=== PATIENT | female | born 2005 | race Caucasian/White ===

== ENCOUNTER 2024-02-28 11:09 | Outpatient (CLI) | payer OTHER, SELFPAY ==
[2024-02-28 12:35] LABS: HIV 1/2 Ab P24 Ag Result Negative (Negative)
[2024-02-28 12:39] LABS: Hepatitis B Surface Antigen Negative (Negative)
[2024-02-28 12:56] LABS: Hepatitis C Virus Antibody Negative (Negative)
[2024-02-28 18:14] LABS: Rapid Plasma Reagin Non-Reactive (NonReactive)
== END 2024-02-28 11:10 | disposition home or self-care (01) ==
LOC: ANHLAB 11:13
PROVIDERS: PCP Student in an Organized Health Care Education/Training Program; Visit Provider Nurse Practitioner Family
DX: Z11.3 Encounter for screening for infections with a predominantly sexual mode of transmission (principal)
CPT/HCPCS: 36415; 86592; 86703; 86803; 87340; G0432

== ENCOUNTER 2024-11-01 19:01 | Emergency (ER) | payer OTHER, SELFPAY ==
--- OUTSIDE RECORDS SUMMARY | 2024-11-02 13:07 | XMS_ITS | Referral Summary ---
Author Organization [address] lt Address [address] [place] [address] Care Team Providers Care Commissioned Sales Associate Name Role Phone Louis Mabry MD Primary Care Provider Allergies No known active allergies Medications Blisovi 24 Fe 1 mg-20 mcg (24)/75 mg (4) per tablet Take 1 tablet by mouth daily 03/05/2022 Active Active Problems No known active problems Immunizations Immunization Administration Dates Next Due Meningococcal MCV4P (Menactra) 12/16/2015 Tdap 12/16/2015 Social History Tobacco Use Types Packs/Day Years Used Date Smoking Tobacco: Never Assessed Comments Unknown Sex and Gender Information Value Date Recorded Sex Assigned at Not on file Legal 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 Gender Identity Not on file Sexual Orientation Not on file Last Filed Vital Signs Vital Sign Reading Time Taken Comments Blood Pressure 100/58 05/18/2022 6:13 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 Pulse 100 05/18/2022 6:13 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 Temperature 36.3 C (97.4 F) 05/18/2022 6:13 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
--- OUTSIDE RECORDS SUMMARY | 2024-11-02 13:07 | XMS_ITS | Clinical Summary ---
Author Organization [facility] Address [address] [place] [address] Phone Care Team Providers Care Human Resources Assistant Manager Name Role Phone Radha Villarreal MD Primary Care Provider + Marta Velasco APRN, FUGITIVE INVESTIGATOR Unavailable Allergies No known active allergies Medications Acetaminophen (TYLENOL PO) Take by mouth. Ac tive ketorolac (TORADOL) 10 MG Tablet Take 1 Tablet by mouth every 6 hours as needed for Moderate or more severe pain. 10 Tablet 4 Active Additional Information Patient not taking.Reported on 09/30/2024 Vienva 0.1-20 MG-MCG Tablet Take 1 Tablet by mouth daily. 5 Active omeprazole (PriLOSEC) 20 MG CAPSULE DELAYED RELEASE Take 1 Capsule by mouth daily. 60 Capsule 5 Active Active Problems Problem Noted Date Diagnosed Date Nausea and vomiting 09/12/2024 Assessment & Plan (09/19/2024 3:55 PM CDT): Pt previously referred to Cardiology. Has not heard back yet. Will look into this referral as she is still dizzy and nauseous. Will also restart pt's Omeprazole as she may be having reflux symptoms. She stated this did help her nausea previously so we will restart it until pt gets in with Cardiology. Assessment & Plan (09/12/2024 11:15 AM CDT): With 5 month hx of nausea and vomiting, happens randomly when she eats. Is not associated with bread intake. Denies being , but does not use protection all the time. Discussed log of episodes. Will obtain UA, HCG, lab work including liver function test, CMP, ESR, CBC. Will call with results. Dizziness 09/12/2024 Assessment & Plan (09/19/2024 4:04 PM CDT): Pt previously referred to Cardiology. Has appt on 09/30/2024 at 830am but we are still working on insurance authorization for this. Pt aware. Assessment & Plan (09/12/2024 11:16 AM CDT): Laying HR 72; Blood Pressure: 120/74 Sitting HR 88; Blood pressure: 116/70 Standing HR 107; Blood Pressure 100/58 Discussed 80 ounces of water a day, increase salt intake. Will obtain Ferritin, FE, and CBC. Will refer to Cardiology for further workup and evaluation. Orthostatic hypotension 09/12/2024 Assessment & Plan (09/20/2024 3:46 PM CDT): Numbers today are improved compared to last visit. Pt to follow up with Cardio as recommended. She also was encouraged to drink water with electrolytes or lemon and salt. Told her to ensure positional changes are slow. Assessment & Plan (09/12/2024 11:16 AM CDT): Laying HR 72; Blood Pressure: 120/74 Sitting HR 88; Blood pressure: 116/70 Standing HR 107; Blood Pressure 100/58 Discussed 80 ounces of water a day, increase salt intake. Will obtain Ferritin, FE, and CBC. Will refer to Cardiology for further workup and evaluation. Marijuana smoker 09/12/2024 Assessment & Plan (09/19/2024 4:03 PM CDT): Explained importance of not smoking as many of pt's symptoms could be explained by marijuana use (lightheadedness, dizziness, nausea, etc). Assessment & Plan (09/12/2024 11:17 AM CDT): Confirms daily marijuana smoking and use. Denies correlation with nausea, vomiting and marijuana intake. Recommended if episodes happen to sit in hot shower to see if self resolves. Discussed importance of not smoking. Epigastric pain 07/18/2024 Assessment & Plan (07/18/2024 10:11 AM 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 MACHINE TENDER): Reflux precautions explained to Mom including smaller, more frequent feeds, elevating head of bed, not laying pt flat until 2-3 hours after dinner. Avoiding fatty, fried, spicy foods, caffeinated beverages, soda, tomatoes, onions, peppermint, and any other foods that irritate stomach. Will start pt on Prilosec. She is to let us know if symptoms worsen. Increased BMI 07/18/2024 Assessment & Plan (07/18/2024 10:22 AM 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 MACHINE TENDER): Dietary counseling done today including 5-2-1-0 (5 fruits and vegetables per day, less than 2 hours of screen time per day, at least 1 hour of activity per day, and 0 sweetened beverages). Obesity labs ordered today. Positive depression screening 07/18/2024 Assessment & Plan (07/18/2024 10:25 AM 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 MACHINE TENDER): PHQ9 + for mild depression. No HI/SI. Will monitor at follow up. Encounter for well adult exam without abnormal f indings 05/24/2019 Assessment & Plan (07/18/2024 10:21 AM 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 MACHINE TENDER): Anticipatory guidance done including seat belt safety and water safety. Fire safety and bug avoidance discussed. Sexual preferences, safe sex practices, and discussion on healthy relationships discussed. Maintaining healthy friendships, bullying, and mental health also discussed. Handout given to reiterate important points. Routine lipid screening ordered. Flu vaccine refused by parent even with appropriate counseling on importance of flu shot. Assessment & Plan (05/24/2019 11:41 AM 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 MACHINE TENDER): HPV given today. 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 Pt states there are no vegetables or fruits in house, lots of unhealthy snacks. Encouraged pt to go grocery shopping with parents. Obesity labs ordered today. Assessment & Plan (11/22/2018 10:16 AM CDT): Obesity labs ordered today. Extensive dietary counseling done today including 5-2-1-0 (5 fruits and vegetables per day, less than 2 hours of screen time per day, at least 1 hour of activity per day, and 0 sweetened beverages). Resolved Problems Problem Noted Date Diagnosed Date Resolved Date Acute pharyngitis due to oth er specified organisms 05/24/2019 02/17/2022 Assessment & Plan (05/24/2019 11:40 AM 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 MACHINE TENDER): Rapid strep negative. Culture pending. Office will call with culture results when they come in. Supportive care recommended including Tylenol or Motrin for fever/pain, gargle with warm salt water (1tsp salt/1 cup water), suck on ice chips, popsicles, cough drops, or throat lozenges. Follow up if symptoms worsen, fail to improve, or are concerned. Abscess 03/05/2019 02/17/2022 Assessment & Plan (03/12/2019 4:47 PM CDT): Resolved on exam today. Good hand washing recommended before and after use of restroom. Told pt to complete antibiotic course. Assessment & Plan (03/05/2019 5:35 PM CDT): Antibiotics prescribed. If no response in 24-48 hours with Bactrim, will consider switch to Clindamycin. Also prescribed Mupirocin topically. Pt was draining a lot at home, but in office, unable to express any drainage. Wound culture given to Mom in case pt does start to drain at home with warm baths and warm compresses. Mom and pt both aware that if pt develops fever, worsening pain, enlarging lesion, help should be obtained as soon as possible. Encounter for routine child health examination with abnormal findings 11/22/201807/18 Assessment & Plan (02/17/2022 1:45 PM CDT): Anticipatory guidance done including seat belt safety and water safety. Fire safety and bug avoidance discussed. Sexual preferences, safe sex practices, and discussion on healthy relationships discussed. Maintaining healthy friendships, bullying, and mental health also discussed. Handout given to reiterate important points. Routine lipid screening ordered. Vaccines updated today. PHQ2 negative for depression. Assessment & Plan (11/22/2018 12:53 PM CDT): Anticipatory guidance done including seat belt safety and water safety. Fire safety and bug avoidance discussed. Sexual preferences, safe sex practices, and discussion on healthy relationships discussed. Maintaining healthy friendships, bullying, and mental health also discussed. Handout given to reiterate important points. Vaccines updated today. PHQ2 negative. Hearing and vision screens passed. Hearing Screening 125hz 250hz 500hz 1000hz 2000hz 3000hz 4000hz 6000hz 8000hz Right ear 20 25 20 20 Left ear 20 25 20 20 Vision Screening Right eye Left eye Both eyes Without correction 20/25 20/20 20/20 Encounter for examination fo r admission to educational institution 11/22/2018 07/18/2024 Assessment & Plan (11/22/2018 10:13 AM CDT): School physical form completed today. Upper respiratory infection, viral 05/02/2018 07/18/2024 Assessment & Plan (02/17/2022 2:32 PM CDT): Supportive care recommended with Flonase to alleviate congestion, exposing pt to steam in bathrooms from showers or baths of family members, and use of humidifiers in bedrooms. Supportive care recommended with Acetaminophen and Ibuprofen as needed for pain and fevers. Rapid strep negative. Pt to let us know if she worsens. Assessment & Plan (05/02/2018 2:29 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): Rapid strep negative. Throat culture pending. Tylenol or Motrin for fever/pain. Gargle with warm salt water (1tsp salt/1 cup water). Suck on ice chips, popsicles, cough drops, or throat lozenges. Do not share food, drinks, or utensils. Follow up if symptoms worsen, fail to improve, or are concerned. Encounters Date Type Department Care Team Description 10/01/2024 1:30 PM CDT - 10/01/2024 11:59 PM CDT Hospital Encounter [facility] Cardiology Services [address] [place] [address] Marta Velasco APRN, MARK Discharge Disposition: Discharged to home or Selfcare 09/30/2024 8:30 AM CDT Office Visit [facility] Cardiology [facility] [place] [address] [place] [address] Marta Velasco APRN, CNP Palpitations (Primary Dx); Orthostatic hypotension Discharge Disposition: Discharged to home or Selfcare 09/30/2024 Travel 09/19/2024 3:30 PM CDT Office Visit [facility] - [place] [address] [address] Radha Villarreal MD Dizziness (Primary Dx); Nausea and vomiting, unspecified vomiting type; Marijuana smoker; Orthostatic hypotension Discharge Disposition: Discharged to home or Selfcare 09/19/2024 Travel 09/18/2024 Results Follow-Up [facility] [place] [address] [address] Haydee Kang APRN, MARK CMP (COMPREHENSIVE METABOLIC PANEL), C-REACTIVE PROTEIN (CRP) QUANT, ERYTHROCYTE SEDIMENTATION RATE (ESR), Additional followed-up results: 7 09/12/2024 10:50 AM CDT Lab [facility] Primary Care - [address] [place] [address] [facility] Nausea and vomiting, unspecified vomiting type; Dizziness Discharge Disposition: Discharged to home or Selfcare 09/12/2024 9:45 AM CDT Office Visit [facility] - [facility] - [place] [address] [facility] [place] [address] Haydee Kang APRN, CNP Nausea and vomiting, unspecified vomiting type (Primary Dx); Dizziness; Orthostatic hypotension; Marijuana smoker Discharge Disposition: Discharged to home or Selfcare 09/12/2024 Travel 09/11/2024 [facility] [address] [place] [phone] Radha Villarreal MD Appointment; Vomiting from Last 3 Months Immunizations Immunization Administration Dates Next Due [id number] mae MCV4, Unspecif ied Formulation 12/16/2015 DTAP VACCINE 11/27/2009, 6,2004,09/15,2004 HEP B/HIB Combined Vaccine 2004 Hepatitis A Vaccine, Pediatric/adolescent, 2 Dose Schedule 11/22/2018 Hepatitis A, Pediatric, Unsp ecified Formulation 10/31/2005 Hepatitis B Vaccine, Pediatric/adolescent 2004,2004 Hib Vaccine,unspecified Formulation 06/14/2005,0 2004,2004 Human Papillomavirus (HPV) 9 -valent Vaccine 05/24/2019,11/22/2018 Inactivated Polio Vaccine 11/27/2009,08/2004,2004,07/09 MMR Vaccine 11/27/2009,06/14/2005 Meningococcal MCV4O 02/17/2022 Pneumococcal Vaccine Peds - 7 Valent ,2004,2004,07/09 TDAP Vaccine 12/16/2015 Varicella Vaccine Live 11/27/2009,06/14/2005 Family History Medical History Relation Name Comments Cancer Maternal Grandmother breast Depression Maternal Grandmother Asthma Maternal Uncle Depression Maternal Uncle Depression Mother Asthma Paternal Aunt Depression Paternal Grandmother Depression Paternal Uncle Relation Name Status Comments Maternal Grandmother Maternal Uncle Mother Paternal Aunt Paternal Grandmother Paternal Uncle Social History Tobacco Use Types Packs/Day Years Used Date Smoking Tobacco: Never Smokeless Tobacco: Never Tobacco Cessation:Counseling Given: Not Answered Alcohol Use Standard Drinks/Week Comments Yes 0 (1 standard drink = 0.6 oz pur e alcohol) occassionally PHQ-2 Answer Date Recorded Total Score - Questions 1-9 0 09/0 06/2021 Comments No Sex and Gender Information Value Date Recorded Sex Assigned at Not on file Legal Sex Female 8:00 PM CDT Gender Identity Not on file Sexual Orientation Not on file Last Filed Vital Signs Vital Sign Reading Time Taken Comments Blood Pressure 132/78 09/30/2024 8:28 AM CDT Pulse 65 09/30/2024 8:28 AM CDT Temperature 36.3 C (97.4 F) 09/30/2024 8:28 AM CDT Respiratory Rate 16 09/30/2024 8:28 AM CDT Oxygen Saturation 99% 09/30/2024 8:28 AM CDT Inhaled Oxygen Concentration - - Weight 80.7 kg (178 lb) 09/30/2024 8:28 AM CDT Height 162.6 cm (5' 4 ) 09/30/2024 8:28 AM CDT Body Mass Index 30.55 09/30/2024 8:28 AM CDT Plan of Treatment Upcoming Encounters Date Type Department Care Team (Late st Contact Info) Description 11/08/2024 5:00 PM CDT [facility]ointment [facility] [address] [place] [phone] Marta Velasco APRN, FUGITIVE INVESTIGATOR [address] [place] [phone] Discharge Disposition: Discharged to home or Selfcare 11/20/2024 9:30 AM CDT Office Visit [facility] - [facility]s - [place] [address] [place] [phone] Radha Villarreal MD [address] [place] [address] 11/27/2024 1:00 PM CDT Office Visit [facility] - Cardiology - [place] [address] [place] [address] Livan Durbin MD 2 [facility], [address] [address] Health Maintenance Due Date Last Done Comments Hepatitis C Virus (HCV) Screening 2004 Meningococcal B Immunization (1 of 2 - Standard) 2020 SARS-COV-2 Immunization (3 - season) 2024 12/09/2020, 11/18/2020 Influenza Immunization (Season Ended) 2025 DTaP/Tdap/Td Immunization (7 - Td or Tdap) 12/15/2025 12/16/2015, 11/27/2009, 10/31/2005, Additional history exists Respiratory Syncytial Virus (RSV) Immunization (Adult) (1 - 1-dose 75+ series) 2079 Hepatitis B Immunization Completed 005, 2004, 2004 Pneumococcal Immunization Combined Aged Out 06/14/2005, 2004, 2004, Additional history exists No longer eligible based on patient's age to complete this topic Measles Mumps Rubella (MMR) Immunization Discontinued 11/27/2009, 06/14/2005 Polio (IPV) Immunization Discontinued 010, 2004, 2004, Additional history exists Varicella Immunization Discontinued 11/27/2009, 2004 Hepatitis A Immunization Discontinued 11/22/2018, 10/17 Human Papillomavirus (HPV) Immunization Completed 05/24/2019, 11/22/2018 Meningococcal Immunization (ACWY) Completed 02/17/2022, 12/16/2015 Rotavirus Immunization Aged Out No lo nger eligible based on patient's age to complete this topic Procedures Procedure Name Priority Date/Time Associated Diagnosis Comments EKG 12 LEAD Routine 09/30/2024 7:37 AM CDT Orthostatic hypotension CBC WITH AUTO DIFFERENTIAL Routine 09/12/2024 10:53 AM CDT Nausea and vomiting, unspecified vomiting type BILIRUBIN DIRECT (CONJUGATED) Routine 09/12/2024 10:53 AM CDT Nausea and vomiting, unspecified vomiting type IMMUNOGLOBULIN A (IGA) - CELIAC Routine 09/12/2024 10:53 AM CDT Nausea and vomiting, unspecified vomiting type GLIADIN IGA ANTIBODY - CELIAC Routine 09/12/2024 10:53 AM CDT Nausea and vomiting, unspecified vomiting type TISSUE TRANSGLUTAMINASE IGA - CELIAC Routine 09/12/2024 10:53 AM CDT Nausea and vomiting, unspecified vomiting type IRON (FE) Routine 09/12/2024 10:53 AM CDT Dizziness FERRITIN Routine 09/12/2024 10:53 AM CDT Dizziness ERYTHROCYTE SEDIMENTATION RATE (ESR) Routine 09/12/2024 10:53 AM CDT Nausea and vomiting, unspecified vomiting type C-REACTIVE PROTEIN (CRP) QUANT Routine 09/12/2024 10:53 AM CDT Nausea and vomiting, unspecified vomiting type CELIAC ANTIBODY PANEL Routine 09/12/2024 10:53 AM CDT Nausea and vomiting, unspecified vomiting type CMP (COMPREHENSIVE METABOLIC PANEL) Routine 09/12/2024 10:53 AM CDT Nausea and vomiting, unspecified vomiting type COMPLETE BLOOD COUNT (CBC) WITH DIFF Routine 09/12/2024 10:53 AM CDT Nausea and vomiting, unspecified vomiting type from Last 3 Months Results * EKG 12 LEAD (09/30/2024 7:37 AM CDT) Ventricular Rate 65 BPM EXTERNAL EKG Atrial Rate 65 BPM EXTERNAL EKG P-R Interval 140 ms EXTERNAL EKG QRS Duration 88 ms EXTERNAL EKG Q-T Duration 392 ms EXTERNAL EKG QTC CALCULATION 407 ms EXTERNAL EKG P Spencer -2 degrees EXTERNAL EKG R Spencer 71 degrees EXTERNAL EKG T Spencer 33 degrees EXTERNAL EKG 09/30/2024 7:37 AM CDT Impressions EXTERNAL EKG - 10/05/2024 4:07 PM CDT Normal sinus rhythm Normal ECG ~ Confirmed by Rosa Caal ([id number]) on 10/05/2024 4:07:08 PM Narrative Procedure Note Rosa Caal MD - 10/05/2024 IMPRESSION: Normal sinus rhythm Normal ECG ~ Confirmed by Rosa Caal ([id number]) on 10/05/2024 4:07:08 PM Marta Velasco APRN, CNP IMG ECG ORDERA BLES Final Result EXTERNAL EKG * IMMUNOGLOBULIN A (IGA) - CELIAC (09/12/2024 10:53 AM CDT) IMMUNOGLOBULIN A 164 65 - 421 mg/dL 09/12/2024 9:07 PM CDT [facility] Blood Venipuncture / Unknown 09/12/2024 10:53 AM CDT 09/12/2024 10:53 AM CDT Haydee Kang APRN, FUGITIVE INVESTIGATOR IMMUNOLOGY ORDERABL ES Final Result [facility] [address] [place] [address], * GLIADIN IGA ANTIBODY - CELIAC (09/12/2024 10:53 AM CDT) DEAMIDATED GLIADIN IGA <0.2 <15.0 U/mL 09/12/2024 9:42 PM CDT [facility] Blood Venipuncture / Unknown 09/12/2024 10:53 AM CDT 09/12/2024 10:53 AM CDT Narrative [facility] - 09/12/2024 9:42 PM CDT Antibody testing was performed by multiplex flow immunoassay on the BioPlex platform. Haydee Kang APRN, CNP IMMUNOLOGY ORDERABL ES Final Result Performing Organization Address [facility] de Phone Number [facility] [address] [place] [address], [place] * TISSUE TRANSGLUTAMINASE IGA - CELIAC (09/12/2024 10:53 AM CDT) Pathologist [facility] TTG IGA <0.5 <15.0 U/mL 09/12/2024 9:42 PM CDT [facility] Blood Venipuncture / Unknown 09/12/2024 10:53 AM CDT 09/12/2024 10:53 AM CDT Narrative [facility] - 09/12/2024 9:42 PM CDT Antibody testing was performed by multiplex flow immunoassay on the BioPlex platform. Haydee Kang APRN, CNP IMMUNOLOGY ORDERABL ES Final Result Performing Organization Address [facility] de Phone Number [facility] [address] [place] [address], [place] * CBC WITH AUTO DIFFERENTIAL (09/12/2024 10:53 AM CDT) WBC 5.91 4.00 - 12.00 10(3)/mcL 09/12/2024 12:32 PM CDT [facility] RBC 4.72 3.80 - 5.30 10(6)/[facility] 09/12/2024 12:32 PM CDT [facility] HEMOGLOBIN (HGB) 12.6 12.0 - 15.8 g/dL 09/12/2024 12:32 PM CDT [facility] HEMATOCRIT (HCT) 40.3 36.0 - 47.0 % 09/12/2024 12:32 PM CDT [facility] MCV 85.4 82.0 - 96.0 fL 09/12/2024 12:32 PM CDT [facility] MCH 26.7 26.0 - 34.0 pg 09/12/2024 12:32 PM CDT [facility] MCHC 31.3 31.0 - 36.0 g/dL 09/12/2024 12:32 PM CDT [facility] PLATELET COUNT 224 140 - 440 10(3)/mcL 09/12/2024 12:32 PM CDT [facility] RDW 12.1 11.8 - 15.5 % 09/12/2024 12:32 PM CDT [facility] MPV 11.7 9.7 - 12.4 fL 09/12/2024 12:32 PM CDT [facility] NEUTROPHILS 55.6 47.0 - 73.0 % 09/12/2024 12:32 PM CDT [facility] LYMPHOCYTES 33.7 18.0 - 42.0 % 09/12/2024 12:32 PM CDT [facility] MONOCYTES 9.0 4.0 - 12.0 % 09/12/2024 12:32 PM CDT [facility] EOSINOPHILS 1.2 0.0 - 5.0 % 09/12/2024 12:32 PM CDT [facility] BASOPHILS 0.5 0.0 - 1.0 % 09/12/2024 12:32 PM CDT [facility] ABSOLUTE NEUTROPHILS 3.29 1.60 - 7.70 10(3)/mcL 09/12/2024 12:32 PM CDT [facility] ABSOLUTE LYMPHOCYTES 1.99 1.30 - 3.20 10(3)/mcL 09/12/2024 12:32 PM CDT [facility] ABSOLUTE MONOCYTES 0.53 0.20 - 1.00 10(3)/mcL 09/12/2024 12:32 PM CDT [facility] ABSOLUTE EOSINOPHIL 0.07 0.00 - 0.40 10(3)/mcL 09/12/2024 12:32 PM CDT [facility] ABSOLUTE BASOPHILS 0.03 0.00 - 0.10 10(3)/mcL 09/12/2024 12:32 PM CDT [facility] NRBC PER 100 WBC 0 09/13/19 12:32 PM CDT [facility] Blood Venipuncture / Unknown 09/12/2024 10:53 AM CDT 09/12/2024 10:53 AM CDT Haydee Kang APRN, MARK HEMATOLOGY ORDERABL ES Final Result Performing Organization Address [facility] Co de Phone Number [facility] [address] [place] [address] * ERYTHROCYTE SEDIMENTATION RATE (ESR) (09/12/2024 10:53 AM CDT) ESR (SED RATE, ERYTHROCYTE SEDIMENTATION RATE) 11 <20 mm/h 09/12/2024 1:34 PM CDT [facility] Comment: Patients presenting with increased level of fibrinogen, gamma globulins, or abnormally shaped RBCs could affect the results for the erythrocyte sedimentation rate (ESR). Results should be clinically correlated. Blood Venipuncture / Unknown 09/12/2024 10:53 AM CDT 09/12/2024 10:53 AM CDT us Haydee Kang APRN, MARK HEMATOLOGY ORDERABL ES Final Result Performing Organization Address City/[facility]/ZIP Co de Phone Number [facility] [address] [place] [address] * IRON (FE) (09/12/2024 10:53 AM CDT) IRON 68 25 - 156 mcg/dL 09/12/2024 1:48 PM CDT [facility] Blood Venipuncture / Unknown 09/12/2024 10:53 AM CDT 09/12/2024 10:53 AM CDT us Haydee Kang APRN, CNP CHEMISTRY ORDERABLE S Final Result Performing Organization Address City/[facility]/ZIP Co de Phone Number [facility] [address] [place] [address] * FERRITIN (09/12/2024 10:53 AM CDT) Pathologist [facility] FERRITIN 30 5 - 204 ng/mL 09/12/2024 1:19 PM CDT [facility] Blood Venipuncture / Unknown 09/12/2024 10:53 AM CDT 09/12/2024 10:53 AM CDT us Haydee Kang APRN, CNP CHEMISTRY ORDERABLE S Final Result Performing Organization Address [facility] de Phone Number [facility] [address] [place] [address] * (ABNORMAL) CMP (COMPREHENSIVE METABOLIC PANEL) (09/12/2024 10:53 AM CDT) [facility] SODIUM 139 136 - 145 mmol/L 09/12/2024 1:07 PM CDT [facility] POTASSIUM 4.5 3.5 - 5.1 mmol/L 09/12/2024 1:07 PM CDT [facility] CHLORIDE 108(H) 98 - 107 mmol/L 09/12/2024 1:07 PM CDT [facility] CO2, VENOUS 28 22 - 30 mmol/L 09/12/2024 1:07 PM CDT [facility] ANION GAP 7.5 <18.0 mmol/L 09/12/2024 1:07 PM CDT [facility] GLUCOSE 88 70 - 99 mg/dL 09/12/2024 1:07 PM CDT [facility] BUN 10 5 - 18 mg/dL 09/12/2024 1:07 PM [facility] CREATININE, BLOOD 0.79 0.60 - 1.00 mg/dL 09/12/2024 1:07 PM [facility] BUN/CREATININE RATIO 13 12 - 20 ratio 09/12/2024 1:07 PM [facility] TOTAL PROTEIN 7.4 6.0 - 8.0 g/dL 09/12/2024 1:07 PM T [facility] ALBUMIN 3.8 3.5 - 5.0 g/dL 09/12/2024 1:07 PM [facility] A/G RATIO 1.1 1.0 - 2.2 09/12/2024 1:07 PM [facility] CALCIUM 8.9 8.7 - 10.5 mg/dL 09/12/2024 1:07 PM [facility] T BILI 0.5 0.2 - 1.2 mg/dL 09/12/2024 1:07 PM [facility] SGOT (AST) 27 <43 U/L 09/12/2024 1:07 PM [facility] SGPT (ALT) 22 <56 U/L 09/12/2024 1:07 PM [facility] ALKALINE PHOSPHATASE 52 40 - 150 U/L 09/12/2024 1:07 PM [facility] IS THE PATIENT REQUIRED TO BE FASTING? No 09/12/2024 1:07 PM [facility] GFR, ESTIMATED >60 >=60 09/12/2024 1:07 PM [facility] Comment: Creatinine Clearance is the preferred criteria for selecting drug dose adjustments in renally impaired patients. The GFR is provided as additional pertinent clinical information. GFR is reported in mL/min/1.73 sq m. Calculation based on the Chronic Kidney Disease Epidemiology Collaboration (CKD- EPI) equation refit without adjustment for race. GFR, EST. >60 >=60 025 1:07 PM [facility] GFR, EST. NONAFRICAN >60 >=60 09/12/2024 1:07 PM CDT [facility] Blood Venipuncture / Unknown 09/12/2024 10:53 AM CDT 09/12/2024 10:53 AM CDT us Haydee Kang APRN, CNP CHEMISTRY ORDERABLE S Final Result Performing Organization Address City/[facility] Co de Phone Number [facility] [address] [place] [address] * (ABNORMAL) C-REACTIVE PROTEIN (CRP) QUANT (09/12/2024 10:53 AM CDT) C-REACTIVE PROTEIN 1.38(H) <0.50 mg/dL 09/12/2024 1:07 PM CDT [facility] Blood Venipuncture / Unknown 09/12/2024 10:53 AM CDT 09/12/2024 10:53 AM CDT us Haydee Kang APRN, CNP CHEMISTRY ORDERABLE S Final Result Performing Organization Address [facility] Co de Phone Number [facility] [address] [place] [address] * BILIRUBIN DIRECT (CONJUGATED) (09/12/2024 10:53 AM CDT) Comp [id number]|2024-11-02 13:07:00|2024-11-02 13:06:00|XMS_ITS|BKG DAEMON|External Medical Summaries|[id number]|" Clinical Summary Created on: November 02, 2024 Betina Marcus : 2005 Sex: Female Author Organization [facility] Address 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 Temperature 36.3 C (97.4 F) 05/18/2022 6: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 Respiratory Rate 20 05/18/2022 6: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 Oxygen Saturation 98% 05/18/2022 6: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 Inhaled Oxygen Concentration - - Weight 86.3 kg (190 lb 3.2 oz) 05/18/2022 6:13 P M 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 MACHINE TENDER Height 163 cm (5' 4.17 ) 05/18/2022 6: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 Body Mass Index 32.47 05/18/2022 6: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 Plan of Treatment Health Maintenance Due Date Last Done Comments Depression Screening 2004 Hepatitis C Screening 2004 Meningococcal B Vaccine (1 o f 2 - Standard) 2020 Regular Well Visit/Exam 18-64 2022 Covid-19 Vaccine (3 - 2023-2 5 season) 2024 12/09/2020, 11/18/2020 Influenza Vaccine (#1) 2024 DTaP/Tdap/Td Vaccine (7 - Td or Tdap) 12/15/2025 12/16/2015, 11/27/2009, 10/31/2005, Additional history exists Hepatitis B Screening Completed 2004 , 2004, 2004 Pneumococcal vaccine <65 Completed 005, 2004, 2004, Additional history exists Varicella Vaccines Completed 11/27/2009, 06/14/2005 HPV Vaccines Completed 05/24/2019, 11/22/2018 Meningococcal Vaccine Completed 02/17/2022, 016 Insurance [employer] Care Teams Human Resources Assistant Manager Relationship Specialty Start Date End Date Louis Mabry MD [address] [place] [address] PCP - General 02/28/13 "
--- OUTSIDE RECORDS SUMMARY | 2024-11-02 13:07 | XMS_ITS | Encounter Summary ---
Author Organization [facility] Address [address] [place] [address] Phone Care Team Providers Care Stabber Name Role Phone Radha Villarreal MD Primary Care Provider + Marta Velasco APRN, SCALE OPERATOR Unavailable Encounter Details Date Type Department Care Team (Latest Contact Info) Description 09/18/2024 Results Follow-Up [facility] - Primary Care - [place] [address] [place] [address] Haydee Kang APRN, SCALE OPERATOR [address] [place] [address] CMP (COMPREHENSIVE METABOLIC PANEL), C-REACTIVE PROTEIN (CRP) QUANT, ERYTHROCYTE SEDIMENTATION RATE (ESR), Additional followed-up results: 7 Social History Tobacco Use Types Packs/Day Years Used Date Smoking Tobacco: Never Smokeless Tobacco: Never Alcohol Use Standard Drinks/Week Comments Yes 0 (1 standard drink = 0.6 oz pur e alcohol) occassionally PHQ-2 Answer Date Recorded Total Score - Questions 1-9 0 09/0 06/2021 Comments No Sex and Gender Information Value Date Recorded Sex Assigned at Not on file Legal Sex Female 8:00 PM CDT Gender Identity Not on file Sexual Orientation Not on file documented as of this encounter Miscellaneous Notes * Telephone Encounter - Jaycee Szymanski RN - 09/18/2024 12:27 PM CDT Patient notified and verbalized understanding. States she will let us know in a few weeks if there is no improvement documented in this encounter Plan of Treatment Upcoming Encounters Date Type Department Care Team (Late st Contact Info) Description 11/08/2024 5:00 PM CDT Appointment [facility] Cardiology Services [address] [place] [phone] Marta Velasco APRN, SCALE OPERATOR [address] [place] [phone] Discharge Disposition: Discharged to home or Selfcare 11/20/2024 9:30 AM CDT Office Visit [facility] - Pediatrics - [place] [address] [place] [address] Radha Villarreal MD [address] [place], [place] [id number] 11/27/2024 1:00 PM CDT Office Visit [facility] - Cardiology [facility] [address] [place] [phone] Livan Durbin MD [address] [address] documented as of this encounter Visit Diagnoses Not on filedocumented in this encounter Additional Health Concerns Assessment Noted Time PHQ-9 Depression Total Score: 0 11/23/19 19 10:00 AM CDT documented as of this encounter Care Teams Stabber Relationship Specialty Start Date End Date Radha Villarreal MD PCP - General Pediatrics 04/24/17 Marta Velasco, NILSA, SCALE OPERATOR [address] [place] [address] Nurse Practitioner Cardiology 09/30/24 documented as of this encounter
== END 2024-11-01 19:41 | disposition home or self-care (01) ==
PROVIDERS: Emergency Provider Nurse Practitioner Family
DX: S30.861A Insect bite (nonvenomous) of abdominal wall, initial encounter (principal); W57.XXXA Bitten or stung by nonvenomous insect and other nonvenomous arthropods, initial encounter; K21.9 Gastro-esophageal reflux disease without esophagitis
CPT/HCPCS: 99213; G0463